=== PATIENT | male | born 1970 | race Hispanic/Latino ===

== ENCOUNTER 2018-09-05 23:20 | Emergency (ER) | payer SELFPAY ==
[2018-09-06] MEDS ORDERED: CEPHALEXIN 500 MG CAPSULE ONE (01:24)
[2018-09-06] MEDS ORDERED: SULFAMETHOX-TMP DS 800/160 TAB ONE (01:25)
[2018-09-06 01:27] LABS: BASOPHILS % (AUTO) 0.6 % (0.0-5.0); EOSINOPHILS % (AUTO) 1.4 % (0.0-8.0); HEMATOCRIT 42.1 % (42-54); LYMPHOCYTES % (AUTO) 14.7 % (21.0-51.0); MEAN CORPUSCULAR HEMOGLOBIN 32.7 pg (27.0-33.0); MEAN CORPUSCULAR VOLUME 96.1 fL (79-99); MONOCYTES % (AUTO) 6.2 % (3.0-13.0); NEUTROPHILS % (AUTO) 77.1 % (40.0-77.0); PLATELET COUNT (AUTO) 220 K/uL (130-400); RED BLOOD CELL COUNT(AUTO) 4.38 MIL/uL (4.50-6.20); RED CELL DISTRIBUTION WIDTH 13.6 % (11.0-15.5); WHITE BLOOD COUNT (AUTO) 11.3 K/uL (4.8-10.8)
[2018-09-06 01:35] LABS: POTASSIUM 3.6 mmol/L (3.5-5.1)
== END 2018-09-06 01:53 | disposition home or self-care (01) ==
LOC: EDH 23:20
DX: L03.115 Cellulitis of right lower limb (principal); E11.9 Type 2 diabetes mellitus without complications; E78.5 Hyperlipidemia, unspecified; I10 Essential (primary) hypertension; Z72.0 Tobacco use; Z88.8 Allergy status to other drugs, medicaments and biological substances
CPT/HCPCS: 36415; 80048; 85025

== ENCOUNTER 2019-09-21 14:47 | Emergency (ER) | payer SELFPAY ==
[2019-09-21 16:21] LABS: BASOPHILS % (AUTO) 0.7 % (0.0-5.0); EOSINOPHILS % (AUTO) 2.6 % (0.0-8.0); HEMATOCRIT 39.9 % (42-54); LYMPHOCYTES % (AUTO) 25.3 % (21.0-51.0); MEAN CORPUSCULAR HEMOGLOBIN 33.4 pg (27.0-33.0); MEAN CORPUSCULAR HGB CONC 34.6 g/dL (32.0-36.0); MEAN CORPUSCULAR VOLUME 96.5 fL (79-99); MONOCYTES % (AUTO) 13.5 % (3.0-13.0); NEUTROPHILS % (AUTO) 57.9 % (40.0-77.0); NUCLEATED RED BLOOD CELLS 0.1 % (0.0-0.19); PLATELET COUNT (AUTO) 207 K/uL (130-400); RED BLOOD CELL COUNT(AUTO) 4.13 MIL/uL (4.50-6.20); WHITE BLOOD COUNT (AUTO) 5.1 K/uL (4.8-10.8)
[2019-09-21 16:23] LABS: APPEARANCE,URINE Cloudy (CLEAR); BILIRUBIN,URINE Negative (NEGATIVE); COLOR,URINE Yellow (YELLOW); GLUCOSE, URINE (UA) >=1000 mg/dL (NEGATIVE); KETONES,URINE Negative (NEGATIVE); LEUKOCYTE ESTERASE ,URINE Negative (NEGATIVE); NITRATE,URINE Negative (NEGATIVE); OCCULT BLOOD,URINE Negative (NEGATIVE); PROTEIN,URINE Negative (NEGATIVE)
[2019-09-21 16:29] LABS: CREATININE 0.7 mg/dL (0.5-1.5); POTASSIUM 4.1 mmol/L (3.5-5.1)
[2019-09-21 16:32] LABS: RBC,URINE 0-1 /HPF (0-1)
[2019-09-21 16:33] LABS: BACTERIA,URINE Moderate /HPF (None Seen); SQUAMOUS EPITHELIAL CELL,UR 0-2 /HPF (0-2); WBC,URINE 0-1 /HPF (0-1)
[2019-09-21 16:34] LABS: AMORPHOUS SEDIMENT,UR Few /LPF (None Seen)
== END 2019-09-21 17:57 | disposition home or self-care (01) ==
LOC: EDH 14:47
DX: L03.116 Cellulitis of left lower limb (principal); L03.115 Cellulitis of right lower limb; E11.9 Type 2 diabetes mellitus without complications; E78.5 Hyperlipidemia, unspecified; I10 Essential (primary) hypertension; Z98.890 Other specified postprocedural states; Z88.8 Allergy status to other drugs, medicaments and biological substances
CPT/HCPCS: 36415; 71045; 80048; 81001; 83735; 84484; 85025; 87804; 93005

== ENCOUNTER 2021-08-14 23:51 | Inpatient (IN) | payer SELFPAY ==
[~2021-08-14] VITALS: Ht 172.7 cm; Wt 86.7 kg
[2021-08-15] VITALS (7 sets, daily range): BP systolic 119–136; BP diastolic 60–89
[2021-08-15 00:29] LABS: BASOPHILS % (AUTO) 0.6 % (0.0-5.0); EOSINOPHILS % (AUTO) 2.8 % (0.0-8.0); HEMATOCRIT 41.5 % (42-54); LYMPHOCYTES % (AUTO) 31.4 % (21.0-51.0); MEAN CORPUSCULAR HEMOGLOBIN 33.2 pg (27.0-33.0); MEAN CORPUSCULAR HGB CONC 34.7 g/dL (32.0-36.0); MEAN CORPUSCULAR VOLUME 95.6 fL (79-99); MONOCYTES % (AUTO) 8.4 % (3.0-13.0); NEUTROPHILS % (AUTO) 56.5 % (40.0-77.0); PLATELET COUNT (AUTO) 227 K/uL (130-400); RED BLOOD CELL COUNT(AUTO) 4.34 MIL/uL (4.50-6.20); RED CELL DISTRIBUTION WIDTH 12.6 % (11.0-15.5); WHITE BLOOD COUNT (AUTO) 7.1 K/uL (4.8-10.8)
[2021-08-15 00:35] LABS: APPEARANCE,URINE Clear (CLEAR); BILIRUBIN,URINE Negative (NEGATIVE); COLOR,URINE Yellow (YELLOW); GLUCOSE, URINE (UA) Negative (NEGATIVE); KETONES,URINE Trace mg/dL (NEGATIVE); LEUKOCYTE ESTERASE ,URINE Negative (NEGATIVE); NITRATE,URINE Negative (NEGATIVE); OCCULT BLOOD,URINE Negative (NEGATIVE); PROTEIN,URINE Trace mg/dL (NEGATIVE)
[2021-08-15 00:38] LABS: POTASSIUM 3.7 mmol/L (3.5-5.1)
[2021-08-15 00:49] LABS: ALBUMIN 3.8 g/dL (3.5-5.0); BILIRUBIN,TOTAL 0.3 mg/dL (0.2-1.0); TOTAL PROTEIN, SERUM 7.8 g/dL (6.0-8.3)
[2021-08-15 01:20] LABS: AMPHET/METH SCREEN,URINE NEGATIVE (NEGATIVE); BARBITURATE SCREEN, URINE NEGATIVE (NEGATIVE); BENZODIAZEPINES SCREEN,URINE NEGATIVE (NEGATIVE); CANNABINOID SCREEN,URINE POSITIVE (NEGATIVE); COCAINE SCREEN,URINE POSITIVE (NEGATIVE); OPIATE SCREEN,URINE NEGATIVE (NEGATIVE); PHENCYCLIDINE SCREEN,URINE NEGATIVE (NEGATIVE)
[2021-08-15] MEDS ORDERED: ASPIRIN 325MG TAB PO ONE (02:00)
[2021-08-15] MEDS ORDERED: NITROGLYCERIN 1GM OINT 1 INCH/1GM TD ONE (02:00)
[2021-08-15] MEDS ORDERED: LABETALOL 20MG VIAL IV ONE (02:00)
[2021-08-15] MEDS ORDERED: ENOXAPARIN SODIUM 80 MG/0.8 ML SQ ONE (02:00)
[2021-08-15] MEDS ORDERED: NITROGLYCERIN 0.4 MG SL TAB SL PRN (04:30)
[2021-08-15] MEDS ORDERED: MORPHINE 2 MG SYG IV PRN (04:30)
[2021-08-15] MEDS ORDERED: LACTATED RINGERS 1000ML 1,000 ML IV SCH (04:30)
[2021-08-15] MEDS ORDERED: HYDRALAZINE 20MG/ML VIAL IV PRN (04:30)
[2021-08-15] MEDS ORDERED: ONDANSETRON 4MG INJ IV PRN (04:30)
[2021-08-15 06:03] LABS: HEMOGLOBIN A1C 7.3 % (4.0-6.0)
[2021-08-15] MEDS: FAMOTIDINE 20MG VIAL IV SCH ×2 (08:00→20:26)
[2021-08-15] MEDS ORDERED: CHLORDIAZEPOXIDE HCL 25 MG CAP PO PRN (12:00)
[2021-08-15] MEDS ORDERED: LORAZEPAM 2 MG/ML 1 ML VIAL IVP PRN (12:00)
[2021-08-15] MEDS ORDERED: FOLIC ACID 1 MG TABLET PO SCH (12:00)
[2021-08-15] MEDS ORDERED: THIAMINE HCL 100 MG TABLET PO SCH (12:00)
[2021-08-15] MEDS ORDERED: PHARMACY COMMUNICATION MISC PRN (12:00)
[2021-08-16 00:42] VITALS: BP 122/68
[2021-08-16 04:19] VITALS: BP 127/66
[2021-08-16 05:38] VITALS: BP 141/84
[2021-08-16 08:15] VITALS: BP 134/82
[2021-08-16] MEDS: THIAMINE HCL 100 MG TABLET PO SCH (09:22)
[2021-08-16] MEDS: FOLIC ACID 1 MG TABLET PO SCH (09:22)
[2021-08-16] MEDS: ASPIRIN 81 MG EC TAB PO SCH (09:22)
[2021-08-16] MEDS: METOPROLOL SUCCINATE 50 MG TAB.SR.24H PO SCH (09:22)
[2021-08-16] MEDS: FAMOTIDINE 20MG VIAL IV SCH ×2 (09:22→20:36)
[2021-08-16] MEDS ORDERED: REGADENOSON 0.4 MG/5 ML PF SYG IVP SCH (09:30)
[2021-08-16] MEDS ORDERED: ATORVASTATIN 40 MG TABLET PO SCH (21:00)
[2021-08-16 22:30] VITALS: BP 145/95
[2021-08-17 04:00] VITALS: BP 153/98
[2021-08-17 06:23] LABS: BASOPHILS % (AUTO) 0.4 % (0.0-5.0); EOSINOPHILS % (AUTO) 1.3 % (0.0-8.0); HEMATOCRIT 40.7 % (42-54); LYMPHOCYTES % (AUTO) 21.2 % (21.0-51.0); MEAN CORPUSCULAR HEMOGLOBIN 32.2 pg (27.0-33.0); MEAN CORPUSCULAR HGB CONC 33.9 g/dL (32.0-36.0); MEAN CORPUSCULAR VOLUME 95.1 fL (79-99); MONOCYTES % (AUTO) 10.8 % (3.0-13.0); NEUTROPHILS % (AUTO) 66.2 % (40.0-77.0); PLATELET COUNT (AUTO) 208 K/uL (130-400); RED BLOOD CELL COUNT(AUTO) 4.28 MIL/uL (4.50-6.20); RED CELL DISTRIBUTION WIDTH 12.5 % (11.0-15.5); WHITE BLOOD COUNT (AUTO) 7.9 K/uL (4.8-10.8)
[2021-08-17 06:33] LABS: CREATININE 0.7 mg/dL (0.5-1.5); POTASSIUM 4.1 mmol/L (3.5-5.1)
[2021-08-17 08:00] VITALS: BP 154/98
[2021-08-17] MEDS ORDERED: METF-526 PO (08:40)
[2021-08-17] MEDS ORDERED: ATOR40TA69 PO (08:40)
[2021-08-17] MEDS ORDERED: AEC81 PO (08:40)
[2021-08-17] MEDS ORDERED: AMLO-257 PO (08:40)
[2021-08-17] MEDS: ASPIRIN 81 MG EC TAB PO SCH (08:50)
[2021-08-17] MEDS: FAMOTIDINE 20MG VIAL IV SCH (08:51)
[2021-08-17] MEDS: FOLIC ACID 1 MG TABLET PO SCH (08:51)
[2021-08-17] MEDS: METOPROLOL SUCCINATE 50 MG TAB.SR.24H PO SCH (08:51)
[2021-08-17] MEDS: THIAMINE HCL 100 MG TABLET PO SCH (08:51)
[2021-08-17] MEDS ORDERED: FLU VACC QS2020-21(6MOS UP)/PF 60 MCG/0.5 ML ML IM SCH (11:30)
[2021-08-17 12:02] VITALS: BP 137/88
[2021-08-17] MEDS ORDERED: FLU VACC QS2021-22(6MOS UP)/PF 60 MCG/0.5 ML ML IM ONE (13:09)
== END 2021-08-17 14:03 | disposition home or self-care (01) | DRG 311 ==
LOC: EDH 23:51 → EDHIP 23:52 → OBSVTOIN 23:52 → 4AH 08-16 22:22
PROVIDERS: ADMIT Internal Medicine; ATTEND Internal Medicine
DX: I20.9 Angina pectoris, unspecified (principal); F14.20 Cocaine dependence, uncomplicated; E11.9 Type 2 diabetes mellitus without complications; I10 Essential (primary) hypertension; Z20.822 Contact with and (suspected) exposure to COVID-19; F32.9 Major depressive disorder, single episode, unspecified; F41.9 Anxiety disorder, unspecified; F17.200 Nicotine dependence, unspecified, uncomplicated; F12.20 Cannabis dependence, uncomplicated; E78.5 Hyperlipidemia, unspecified; Z91.14 Patient's other noncompliance with medication regimen; Z88.8 Allergy status to other drugs, medicaments and biological substances; Z23 Encounter for immunization
CPT/HCPCS: 36415; 71045; 78452; 80048; 80053; 80061; 80305; 81003; 82550; 82948; 83036; 83874; 84484; 85025; 87635; 93005; 93017; 96374; A9500; G0378; J2405; J2785; J3490; J7120; Q2035

== ENCOUNTER 2022-06-16 21:01 | Emergency (ER) | payer OTHER ==
[~2022-06-16] VITALS: Ht 172.7 cm; Wt 96.2 kg
[~2022-06-16 21:01] MED LIST: AEC81 PO; AMLO-257 PO; ATOR40TA69 PO; METF-526 PO
[2022-06-16] MEDS ORDERED: IBUPROFEN 600 MG TABLET PO ONE (21:30)
[2022-06-16 21:46] LABS: BASOPHILS % (AUTO) 0.4 % (0.0-5.0); EOSINOPHILS % (AUTO) 0.6 % (0.0-8.0); HEMATOCRIT 38.5 % (42-54); LYMPHOCYTES % (AUTO) 12.8 % (21.0-51.0); MEAN CORPUSCULAR HGB CONC 35.1 g/dL (32.0-36.0); MEAN CORPUSCULAR VOLUME 94.1 fL (79-99); MONOCYTES % (AUTO) 9.1 % (3.0-13.0); NEUTROPHILS % (AUTO) 76.8 % (40.0-77.0); PLATELET COUNT (AUTO) 156 K/uL (130-400); RED BLOOD CELL COUNT(AUTO) 4.09 MIL/uL (4.50-6.20); RED CELL DISTRIBUTION WIDTH 12.3 % (11.0-15.5); WHITE BLOOD COUNT (AUTO) 10.6 K/uL (4.8-10.8)
[2022-06-16 21:56] LABS: CREATININE 0.9 mg/dL (0.5-1.5); POTASSIUM 3.8 mmol/L (3.5-5.1)
[2022-06-16 22:00] LABS: ALBUMIN 3.3 g/dL (3.5-5.0)
[2022-06-16] MEDS ORDERED: LACTATED RINGERS 1000ML 1,000 ML IV ONE (22:00)
[2022-06-16 22:07] LABS: APPEARANCE,URINE Clear (CLEAR); BILIRUBIN,URINE Negative (NEGATIVE); COLOR,URINE Yellow (YELLOW); GLUCOSE, URINE (UA) >=1000 mg/dL (NEGATIVE); KETONES,URINE Trace mg/dL (NEGATIVE); LEUKOCYTE ESTERASE ,URINE Moderate (NEGATIVE); NITRATE,URINE Negative (NEGATIVE); OCCULT BLOOD,URINE Large (NEGATIVE); PROTEIN,URINE POS 1+ mg/dL (NEGATIVE)
[2022-06-16 22:19] LABS: BACTERIA,URINE Rare /HPF (None Seen); SQUAMOUS EPITHELIAL CELL,UR Rare /HPF (0-2)
[2022-06-16] MEDS ORDERED: CEFTRIAXONE 1G VIAL IVP ONE (23:00)
[2022-06-16] MEDS ORDERED: CEFD300C3 PO (23:07)
[2022-06-16 23:18] VITALS: BP 131/74
== END 2022-06-16 23:32 | disposition home or self-care (01) ==
LOC: EDH 21:01
DX: N39.0 Urinary tract infection, site not specified (principal); J06.9 Acute upper respiratory infection, unspecified; E11.65 Type 2 diabetes mellitus with hyperglycemia; D64.9 Anemia, unspecified; Z20.822 Contact with and (suspected) exposure to COVID-19; E78.00 Pure hypercholesterolemia, unspecified; I10 Essential (primary) hypertension; E66.01 Morbid (severe) obesity due to excess calories; Z79.1 Long term (current) use of non-steroidal anti-inflammatories (NSAID); Z79.82 Long term (current) use of aspirin; Z79.84 Long term (current) use of oral hypoglycemic drugs; Z88.8 Allergy status to other drugs, medicaments and biological substances; Z68.32 Body mass index [BMI] 32.0-32.9, adult
CPT/HCPCS: 99283; 96374; 87635; 80053; 85025; 87077; 87088; 87186; 87804 ×2; 81001; 36415; C9803; J0696

== ENCOUNTER 2022-06-29 13:36 | Inpatient (IN) | payer OTHER ==
[~2022-06-29] VITALS: Ht 172.7 cm; Wt 93.0 kg
[~2022-06-29 13:36] MED LIST changes: +CEFD300C3 PO
[2022-06-29 13:56] LABS: BASOPHILS % (AUTO) 0.4 % (0.0-5.0); EOSINOPHILS % (AUTO) 1.6 % (0.0-8.0); HEMATOCRIT 37.4 % (42-54); LYMPHOCYTES % (AUTO) 15.3 % (21.0-51.0); MEAN CORPUSCULAR HEMOGLOBIN 31.8 pg (27.0-33.0); MEAN CORPUSCULAR HGB CONC 34.2 g/dL (32.0-36.0); NEUTROPHILS % (AUTO) 76.1 % (40.0-77.0); PLATELET COUNT (AUTO) 319 K/uL (130-400); RED BLOOD CELL COUNT(AUTO) 4.02 MIL/uL (4.50-6.20); RED CELL DISTRIBUTION WIDTH 11.9 % (11.0-15.5); WHITE BLOOD COUNT (AUTO) 10.8 K/uL (4.8-10.8)
[2022-06-29 14:04] LABS: APPEARANCE,URINE CLEAR (CLEAR); BILIRUBIN,URINE NEGATIVE (NEGATIVE); COLOR,URINE YELLOW (YELLOW); GLUCOSE, URINE (UA) >=1000 mg/dL (NEGATIVE); KETONES,URINE NEGATIVE (NEGATIVE); LEUKOCYTE ESTERASE ,URINE NEGATIVE (NEGATIVE); NITRATE,URINE NEGATIVE (NEGATIVE); OCCULT BLOOD,URINE NEGATIVE (NEGATIVE); PROTEIN,URINE NEGATIVE (NEGATIVE); UROBILINOGEN,URINE 0.2 mg/dL (0.2-1.0)
[2022-06-29 14:14] LABS: POTASSIUM 4.6 mmol/L (3.5-5.1); TOTAL PROTEIN, SERUM 8.2 g/dL (6.0-8.3)
[2022-06-29 14:15] LABS: BACTERIA,URINE None Seen /HPF (None Seen); MUCUS,URINE Few LPF (None Seen); RBC,URINE 0-1 /HPF (0-1); SPERM,URINE Moderate /HPF (None Seen); SQUAMOUS EPITHELIAL CELL,UR 0-2 /HPF (0-2); WBC,URINE 0-1 /HPF (0-1)
[2022-06-29] MEDS ORDERED: INSULIN HUMULIN R 100 UNIT/ML 3ML IV ONE (14:30)
[2022-06-29] MEDS ORDERED: 0.9%NACL 1000ML 1,000 ML IV ONE (14:30)
[2022-06-29] MEDS ORDERED: KETOROLAC 15MG/ML VIAL (15MG/ML) ONE (15:00)
[2022-06-29] MEDS ORDERED: KETOROLAC 15MG/ML VIAL (15MG/ML) IV ONE (15:00)
[2022-06-29] MEDS ORDERED: CEFTRIAXONE 1G VIAL IVP ONE (17:30)
[2022-06-29] MEDS ORDERED: MAG/ALUM/SIMETH 30 ML UDCUP PO PRN (19:00)
[2022-06-29] MEDS ORDERED: ONDANSETRON 4MG INJ IV PRN (19:00)
[2022-06-29] MEDS ORDERED: HYDRALAZINE 20MG/ML VIAL IV PRN (19:00)
[2022-06-29] MEDS ORDERED: ACETAMINOPHEN 325 MG TAB PO PRN ×2 (19:00)
[2022-06-29] MEDS: CEFTRIAXONE 1G VIAL IV SCH (19:00)
[2022-06-29] MEDS ORDERED: LACTULOSE 20 GM/30 ML UDCUP PO PRN (19:00)
[2022-06-29] MEDS ORDERED: DIPHENHYDRAMINE HCL 25 MG CAPSULE PO PRN (19:00)
[2022-06-29] MEDS: 0.9%NACL 1000ML 1,000 ML IV SCH (19:55)
[2022-06-29 20:10] VITALS: BP 145/98
[2022-06-29] MEDS: MORPHINE 4 MG SYG IV PRN (21:17)
[2022-06-29] MEDS: FAMOTIDINE 20MG TAB PO SCH (21:17)
[2022-06-29] MEDS: INSULIN HUMULIN R 100 UNIT/ML 3ML SQ SCH (21:35)
[2022-06-29] MEDS: INSULIN GLARGINE 100 UNITS/ML 10 ML VIAL SQ SCH (21:36)
[2022-06-29] MEDS ORDERED: FLUO20CA30 PO (22:44)
[2022-06-30] VITALS: BP 148/96
[2022-06-30] MEDS: MORPHINE 4 MG SYG IV PRN ×4 (01:17→21:23)
[2022-06-30 04:00] VITALS: BP 132/83
[2022-06-30] MEDS: 0.9%NACL 1000ML 1,000 ML IV SCH ×2 (05:08→11:55)
[2022-06-30 05:51] LABS: HEMATOCRIT 33.6 % (42-54); MEAN CORPUSCULAR HEMOGLOBIN 31.7 pg (27.0-33.0); MEAN CORPUSCULAR HGB CONC 33.6 g/dL (32.0-36.0); MEAN CORPUSCULAR VOLUME 94.1 fL (79-99); RED BLOOD CELL COUNT(AUTO) 3.57 MIL/uL (4.50-6.20); WHITE BLOOD COUNT (AUTO) 12.6 K/uL (4.8-10.8)
[2022-06-30 06:00] LABS: CREATININE 0.8 mg/dL (0.5-1.5); POTASSIUM 3.9 mmol/L (3.5-5.1)
[2022-06-30] MEDS: INSULIN GLARGINE 100 UNITS/ML 10 ML VIAL SQ SCH ×2 (06:34→21:06)
[2022-06-30] MEDS: INSULIN HUMULIN R 100 UNIT/ML 3ML SQ SCH ×4 (06:34→21:07)
[2022-06-30 08:00] VITALS: BP 139/92
[2022-06-30] MEDS: FAMOTIDINE 20MG TAB PO SCH ×2 (08:14→21:05)
[2022-06-30] MEDS: ENOXAPARIN SODIUM 40 MG/0.4 ML SYRINGE SQ SCH (08:15)
[2022-06-30 12:00] VITALS: BP 135/88
[2022-06-30 15:45] VITALS: BP 145/98
[2022-06-30 20:00] VITALS: BP 142/90
[2022-06-30] MEDS: CEFTRIAXONE 1G VIAL IV SCH (21:04)
[2022-07-01] VITALS (7 sets, daily range): BP systolic 121–148; BP diastolic 76–98
[2022-07-01] MEDS: MORPHINE 4 MG SYG IV PRN ×2 (01:29→08:27)
[2022-07-01] MEDS: 0.9%NACL 1000ML 1,000 ML IV SCH ×2 (02:57→21:00)
[2022-07-01 05:18] LABS: HEMATOCRIT 33.4 % (42-54); MEAN CORPUSCULAR HEMOGLOBIN 31.7 pg (27.0-33.0); MEAN CORPUSCULAR HGB CONC 33.8 g/dL (32.0-36.0); MEAN CORPUSCULAR VOLUME 93.6 fL (79-99); RED BLOOD CELL COUNT(AUTO) 3.57 MIL/uL (4.50-6.20); RED CELL DISTRIBUTION WIDTH 12.1 % (11.0-15.5); WHITE BLOOD COUNT (AUTO) 12.5 K/uL (4.8-10.8)
[2022-07-01 05:31] LABS: CREATININE 0.8 mg/dL (0.5-1.5); POTASSIUM 3.7 mmol/L (3.5-5.1)
[2022-07-01] MEDS: INSULIN GLARGINE 100 UNITS/ML 10 ML VIAL SQ SCH ×2 (06:13→22:32)
[2022-07-01] MEDS: INSULIN HUMULIN R 100 UNIT/ML 3ML SQ SCH ×4 (06:14→22:33)
[2022-07-01] MEDS: FAMOTIDINE 20MG TAB PO SCH ×2 (08:27→22:00)
[2022-07-01] MEDS: LEVOFLOXACIN 500 MG/D5W 100 ML 100 ML IV SCH (08:27)
[2022-07-01] MEDS: ENOXAPARIN SODIUM 40 MG/0.4 ML SYRINGE SQ SCH (08:27)
[2022-07-01] MEDS: KETOROLAC 30MG VIAL (30MG/ML) IVP PRN ×2 (14:46→22:00)
[2022-07-01] MEDS: AMLODIPINE 5 MG TAB PO SCH (17:20)
[2022-07-01] MEDS: CEFTRIAXONE 1G VIAL IV SCH (19:08)
[2022-07-01] MEDS: HYDROCODONE/ACETAMINOPHEN 5/325 MG TAB PO PRN (19:09)
[2022-07-02] MEDS: HYDROCODONE/ACETAMINOPHEN 5/325 MG TAB PO PRN ×3 (02:05→15:14)
[2022-07-02] MEDS: 0.9%NACL 1000ML 1,000 ML IV SCH ×2 (02:07→07:00)
[2022-07-02 04:20] VITALS: BP 139/92
[2022-07-02] MEDS: INSULIN HUMULIN R 100 UNIT/ML 3ML SQ SCH ×4 (06:32→20:52)
[2022-07-02] MEDS: LEVOFLOXACIN 500 MG/D5W 100 ML 100 ML IV SCH (06:37)
[2022-07-02] MEDS: INSULIN GLARGINE 100 UNITS/ML 10 ML VIAL SQ SCH ×2 (06:46→20:50)
[2022-07-02 08:23] VITALS: BP 127/85
[2022-07-02] MEDS: FAMOTIDINE 20MG TAB PO SCH ×2 (08:40→20:35)
[2022-07-02] MEDS: ENOXAPARIN SODIUM 40 MG/0.4 ML SYRINGE SQ SCH (08:43)
[2022-07-02 10:24] LABS: BASOPHILS % (AUTO) 0.4 % (0.0-5.0); EOSINOPHILS % (AUTO) 1.1 % (0.0-8.0); LYMPHOCYTES % (AUTO) 11.9 % (21.0-51.0); MEAN CORPUSCULAR HEMOGLOBIN 31.8 pg (27.0-33.0); MEAN CORPUSCULAR HGB CONC 33.5 g/dL (32.0-36.0); MEAN CORPUSCULAR VOLUME 94.7 fL (79-99); MONOCYTES % (AUTO) 8.5 % (3.0-13.0); NEUTROPHILS % (AUTO) 77.7 % (40.0-77.0); PLATELET COUNT (AUTO) 366 K/uL (130-400); RED BLOOD CELL COUNT(AUTO) 3.59 MIL/uL (4.50-6.20); WHITE BLOOD COUNT (AUTO) 9.7 K/uL (4.8-10.8)
[2022-07-02 10:35] LABS: CREATININE 0.8 mg/dL (0.5-1.5); POTASSIUM 3.8 mmol/L (3.5-5.1)
[2022-07-02 10:40] LABS: ALBUMIN 2.5 g/dL (3.5-5.0); CRP QUANTITATIVE 150.8 mg/L (0.00-9.0); TOTAL PROTEIN, SERUM 7.7 g/dL (6.0-8.3)
[2022-07-02 11:28] LABS: ERYTHROCYTE SEDIMENTATION RATE 130 MM/HR (0-20)
[2022-07-02 12:18] VITALS: BP 133/91
[2022-07-02 16:01] VITALS: BP 129/85
[2022-07-02] MEDS: CEFTRIAXONE 1G VIAL IV SCH (17:56)
[2022-07-02] MEDS: AMLODIPINE 5 MG TAB PO SCH (17:56)
[2022-07-02] MEDS ORDERED: TRAMADOL HCL 50 MG TABLET PO PRN ×2 (20:00→21:30)
[2022-07-02 20:08] VITALS: BP 134/94
[2022-07-02] MEDS: DOXYCYCLINE HYCLATE 100 MG TABLET PO SCH (20:35)
[2022-07-02] MEDS: ZOLPIDEM TARTRATE 5 MG TAB PO PRN (20:35)
[2022-07-02] MEDS: KETOROLAC 30MG VIAL (30MG/ML) IVP PRN (20:40)
[2022-07-03 00:17] VITALS: BP 139/96
[2022-07-03 01:59] VITALS: BP 139/96
[2022-07-03 04:52] VITALS: BP 143/93
[2022-07-03 05:08] LABS: BASOPHILS % (AUTO) 0.6 % (0.0-5.0); EOSINOPHILS % (AUTO) 2.6 % (0.0-8.0); HEMATOCRIT 34.4 % (42-54); LYMPHOCYTES % (AUTO) 22.4 % (21.0-51.0); MEAN CORPUSCULAR HEMOGLOBIN 31.7 pg (27.0-33.0); MEAN CORPUSCULAR VOLUME 93.2 fL (79-99); MONOCYTES % (AUTO) 9.3 % (3.0-13.0); NEUTROPHILS % (AUTO) 64.5 % (40.0-77.0); PLATELET COUNT (AUTO) 391 K/uL (130-400); RED BLOOD CELL COUNT(AUTO) 3.69 MIL/uL (4.50-6.20); RED CELL DISTRIBUTION WIDTH 12.1 % (11.0-15.5); WHITE BLOOD COUNT (AUTO) 6.7 K/uL (4.8-10.8)
[2022-07-03 05:26] LABS: ALBUMIN 2.6 g/dL (3.5-5.0); CREATININE 0.8 mg/dL (0.5-1.5)
[2022-07-03 05:46] LABS: CRP QUANTITATIVE 112.8 mg/L (0.00-9.0)
[2022-07-03 07:00] LABS: ERYTHROCYTE SEDIMENTATION RATE 142 MM/HR (0-20)
[2022-07-03] MEDS: INSULIN HUMULIN R 100 UNIT/ML 3ML SQ SCH ×4 (07:12→22:04)
[2022-07-03] MEDS: ENOXAPARIN SODIUM 40 MG/0.4 ML SYRINGE SQ SCH (08:58)
[2022-07-03] MEDS: DOXYCYCLINE HYCLATE 100 MG TABLET PO SCH ×2 (08:59→22:08)
[2022-07-03] MEDS: FAMOTIDINE 20MG TAB PO SCH ×2 (08:59→22:08)
[2022-07-03] MEDS: METFORMIN HCL 500 MG TABLET PO SCH ×3 (08:59→17:52)
[2022-07-03] MEDS: KETOROLAC 30MG VIAL (30MG/ML) IVP PRN (15:31)
[2022-07-03] MEDS: AMLODIPINE 5 MG TAB PO SCH (15:49)
[2022-07-03 16:00] VITALS: BP 132/90
[2022-07-03] MEDS ORDERED: NIFEDIPINE ER 30 MG TAB PO SCH (18:00)
[2022-07-03] MEDS: CEFTRIAXONE 1G VIAL IV SCH (18:04)
[2022-07-03 20:00] VITALS: BP 130/82
[2022-07-03] MEDS: INSULIN GLARGINE 100 UNITS/ML 10 ML VIAL SQ SCH (22:04)
[2022-07-03] MEDS: ZOLPIDEM TARTRATE 5 MG TAB PO PRN (22:08)
[2022-07-04] VITALS (7 sets, daily range): BP systolic 121–145; BP diastolic 59–93
[2022-07-04 05:33] LABS: BASOPHILS % (AUTO) 0.8 % (0.0-5.0); EOSINOPHILS % (AUTO) 3.9 % (0.0-8.0); HEMATOCRIT 34.4 % (42-54); MEAN CORPUSCULAR HEMOGLOBIN 31.8 pg (27.0-33.0); MEAN CORPUSCULAR VOLUME 93.5 fL (79-99); MONOCYTES % (AUTO) 8.4 % (3.0-13.0); NEUTROPHILS % (AUTO) 57.4 % (40.0-77.0); PLATELET COUNT (AUTO) 430 K/uL (130-400); RED BLOOD CELL COUNT(AUTO) 3.68 MIL/uL (4.50-6.20); RED CELL DISTRIBUTION WIDTH 11.9 % (11.0-15.5); WHITE BLOOD COUNT (AUTO) 5.9 K/uL (4.8-10.8)
[2022-07-04 05:55] LABS: ALBUMIN 2.7 g/dL (3.5-5.0); CREATININE 0.8 mg/dL (0.5-1.5); CRP QUANTITATIVE 58.7 mg/L (0.00-9.0); POTASSIUM 4.5 mmol/L (3.5-5.1)
[2022-07-04] MEDS: INSULIN HUMULIN R 100 UNIT/ML 3ML SQ SCH ×6 (06:53→22:44)
[2022-07-04] MEDS ORDERED: INSULIN HUMULIN R 100 UNIT/ML 3ML SQ SCH (07:30)
[2022-07-04] MEDS ORDERED: HYDR-4030 PO (09:48)
[2022-07-04] MEDS ORDERED: FLUO20CA36 PO (09:48)
[2022-07-04] MEDS: NIFEDIPINE ER 30 MG TAB PO SCH (09:57)
[2022-07-04] MEDS: ENOXAPARIN SODIUM 40 MG/0.4 ML SYRINGE SQ SCH (09:57)
[2022-07-04] MEDS: FAMOTIDINE 20MG TAB PO SCH ×2 (09:57→22:21)
[2022-07-04] MEDS: DOXYCYCLINE HYCLATE 100 MG TABLET PO SCH ×2 (09:57→22:21)
[2022-07-04] MEDS: METFORMIN HCL 500 MG TABLET PO SCH ×3 (09:57→17:15)
[2022-07-04] MEDS ORDERED: HYDROXYZINE 25 MG TABLET PO PRN ×2 (10:30→11:00)
[2022-07-04] MEDS: AMLODIPINE 5 MG TAB PO SCH (17:15)
[2022-07-04] MEDS ORDERED: INSULIN GLARGINE 100 UNITS/ML 10 ML VIAL SQ SCH (21:00)
[2022-07-04] MEDS: CEFTRIAXONE 1G VIAL IV SCH (22:20)
[2022-07-04] MEDS: ZOLPIDEM TARTRATE 5 MG TAB PO PRN (22:21)
[2022-07-04] MEDS: KETOROLAC 30MG VIAL (30MG/ML) IVP PRN (22:23)
[2022-07-05 00:26] VITALS: BP 124/81
[2022-07-05 05:41] VITALS: BP 121/81
[2022-07-05 05:57] LABS: EOSINOPHILS % (AUTO) 3.8 % (0.0-8.0); LYMPHOCYTES % (AUTO) 38.2 % (21.0-51.0); MEAN CORPUSCULAR HEMOGLOBIN 31.1 pg (27.0-33.0); MEAN CORPUSCULAR HGB CONC 33.5 g/dL (32.0-36.0); MEAN CORPUSCULAR VOLUME 92.9 fL (79-99); MONOCYTES % (AUTO) 10.3 % (3.0-13.0); NEUTROPHILS % (AUTO) 46.2 % (40.0-77.0); PLATELET COUNT (AUTO) 462 K/uL (130-400); RED BLOOD CELL COUNT(AUTO) 3.66 MIL/uL (4.50-6.20); WHITE BLOOD COUNT (AUTO) 6.1 K/uL (4.8-10.8)
[2022-07-05 06:26] LABS: ALBUMIN 2.7 g/dL (3.5-5.0); CREATININE 0.9 mg/dL (0.5-1.5); POTASSIUM 4.2 mmol/L (3.5-5.1)
[2022-07-05] MEDS: INSULIN HUMULIN R 100 UNIT/ML 3ML SQ SCH ×6 (06:31→16:54)
[2022-07-05 08:00] VITALS: BP 118/87
[2022-07-05] MEDS ORDERED: FLUOXETINE HCL 20 MG CAPSULE PO SCH (09:00)
[2022-07-05] MEDS: NIFEDIPINE ER 30 MG TAB PO SCH (09:40)
[2022-07-05] MEDS: METFORMIN HCL 500 MG TABLET PO SCH ×3 (09:40→16:53)
[2022-07-05] MEDS: DOXYCYCLINE HYCLATE 100 MG TABLET PO SCH (09:40)
[2022-07-05] MEDS: FAMOTIDINE 20MG TAB PO SCH (09:40)
[2022-07-05] MEDS: ENOXAPARIN SODIUM 40 MG/0.4 ML SYRINGE SQ SCH (09:41)
[2022-07-05 12:00] VITALS: BP 125/84
[2022-07-05 16:00] VITALS: BP 114/86
[2022-07-05] MEDS: AMLODIPINE 5 MG TAB PO SCH (16:53)
[2022-07-05] MEDS: KETOROLAC 30MG VIAL (30MG/ML) IVP PRN (16:53)
[2022-07-05] MEDS ORDERED: CEFU500T67 PO (17:33)
[2022-07-05] MEDS ORDERED: SYRI-1628 MC (17:33)
[2022-07-05] MEDS ORDERED: INSU100V3 SQ (17:33)
[2022-07-05] MEDS ORDERED: DOXY100T2 PO (17:33)
[2022-07-05] MEDS ORDERED: INSLAN SQ (17:33)
[2022-07-05] MEDS ORDERED: NIFE-40 PO (17:33)
== END 2022-07-05 18:40 | disposition home or self-care (01) | DRG 603 ==
LOC: EDH 13:36 → EDHIP 13:37 → OBSVTOIN 13:37 → 3CH 20:20
PROVIDERS: ADMIT Internal Medicine; ATTEND Internal Medicine
DX: L03.818 Cellulitis of other sites (principal); E11.65 Type 2 diabetes mellitus with hyperglycemia; D64.9 Anemia, unspecified; E66.9 Obesity, unspecified; E78.00 Pure hypercholesterolemia, unspecified; F32.A Depression, unspecified; F41.9 Anxiety disorder, unspecified; I10 Essential (primary) hypertension; N45.3 Epididymo-orchitis; Z91.19 Patient's noncompliance with other medical treatment and regimen; Z82.49 Family history of ischemic heart disease and other diseases of the circulatory system; Z83.3 Family history of diabetes mellitus; Z79.899 Other long term (current) drug therapy; Z68.31 Body mass index [BMI] 31.0-31.9, adult
CPT/HCPCS: 36415; 72192; 76870; 80048; 80053; 81001; 82010; 82948; 83036; 84145; 85025; 85027; 85651; 86140; 87486; 87797; G0378; J0360; J0696; J1650; J1815; J1885; J1956; J2270; J7030